=== PATIENT | male | born 1995 ===

== ENCOUNTER 2025-02-03 08:02 | Outpatient (AMB) | payer BC, SELFPAY ==
--- NOTE | 2025-02-03 08:05 | MHC.PC.OV ---
Vital Signs 02/03/25 08:07 Height 5 ft 6.54 in Weight 194 lb 2 oz BMI 30.8 BP 120/60 Blood Pressure Location Lt brachial Position Sitting Pulse 75 Pulse Source Pulse Oximeter Temp 97.3 F Temp Source Temporal Artery Scan Pulse Oximetry (%) 98 Oxygen Delivery Method Room Air Intake Visit Reasons: establish care Intake Note: Patient is a new patient here to establish care for Wellness visit. Transferring care from [facility]. Medical records have been requested and have not received. Certified Nurses' Aide Required: No Mule Tender: Not Required per policy Accompanied by: Self / Same As Patient Allergies No Known Allergies Allergy (Verified 02/03/25 08:17) Medication List - Last Reconciled 02/03/25 by Carri Bowen PA-C No Known Home Meds Tobacco use date assessed: 02/03/25 Dental Screening Dental Screen Date: 02/03/25 Did you have a dental visit in the last 12 months?: Yes Did you have a dental problem in the last 6 months where you did not have access to dental care?: No Was dental information given to patient?: Patient has dentist HPI establish care HPI Details 29-year-old male coming to the office with the 1st time. Presenting for a wellness visit and evaluation of skin and lymphatic concerns. 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 It is characterized by periods of remission and recurrence, with no associated pain or itchiness. The patient has attempted various treatments, including antifungal shampoos, but adherence has been inconsistent. He does also mentioned having left breast mass that he occasionally feels that has not nontender. [facility] Surgical History History of wisdom tooth extraction History of tonsillectomy Family History Paternal Grandfather Skin cancer Adrenal cancer Paternal Grandmother Throat cancer Social History Housing: Apartment Alcohol intake: never Patient Tobacco Use Status: Never used Tobacco e-Cigarette/Vaping Use: Never Used Second Hand Smoke Exposure: No service: No Current occupational status: employed Current occupation: Banker Cognitive needs: No Hearing needs: No Vision needs: Yes (Glasses) Questionnaire PHQ-9 Over the last 2 weeks, how often have you been bothered by any of the following problems? 1. Little interest or pleasure in doing things: not at all 2. Feeling down, depressed, or hopeless: not at all 3. Trouble falling or staying asleep, or sleeping too much: not at all 4. Feeling tired or having little energy: not at all 5. Poor appetite or overeating: not at all 6. Feeling bad about yourself - or that you are a failure or have let yourself or your family down: not at all 7. Trouble concentrating on things, such as reading the newspaper or watching television: not at all 8. Moving or speaking so slowly that other people could have noticed. Or the opposite - being so fidgety or restless that you have been moving around a lot more than usual: not at all 9. Thoughts that you would be better off or of hurting yourself in some way: not at all Total score: 0 Depression Screening Interpretation: Negative Depression Screening Done: Yes 42696 - PHQ-9 Billing: Yes Source: Developed by Drs. Thong Rubin, Cecelia Oneil, Hank Evans and colleagues, with an educational maren from [email or web address]. Thrive Questionnaire Date Thrive assessed: 01/31/25 I am a: Patient What is your living situation today?: I choose not to answer this question Within the past 12 months, did the food you bought not last and you didn't have the money to get more?: I choose not to answer this question Within the past 12 months, did you worry whether your food would run out before you got money to buy more?: I choose not to answer this question Do you have trouble paying for medicines?: I choose not to answer this question Do you have trouble getting transportation to medical appointments?: I choose not to answer this question Do you have trouble paying your heating and electricity bill?: I choose not to answer this question Do you have trouble taking care of your child, family member or friend?: I choose not to answer this question Do you have trouble with day-to-day activities such as bathing, preparing meals, shopping, managing finances, etc.?: I choose not to answer this question Are you currently unemployed and looking for a job?: I choose not to answer this question Are you interested in more education?: I choose not to answer this question Please select the resources that you would like help with: None Currently or been in a relationship where the following occur: I choose not to answer THRIVE Score: 0 AUDIT C Alcohol Use Questionnaire (AUDIT-C) 1. How often do you have a drink containing alcohol?: Never 2. How many drinks containing alcohol do you have on a typical day when you are drinking?: 1 or 2 3. How often do you have six or more drinks on one occasion?: Never Total Score: 0 STUART-7 AMB Questionnaire STUART-7 Date STUART - 7 assessed: 02/03/25 Feeling nervous, anxious, or on edge: 0 = Not at all Not being able to stop or control worryin = Not at all Worrying too much about different things: 0 = Not at all Trouble relaxin = Not at all Being so restless that it is hard to sit still: 0 = Not at all Becoming easily annoyed or irritable: 0 = Not at all Feeling afraid as if something awful might happen: 0 = Not at all Total STUART-7 score (0-4 normal; 5-9 mild; 10-14 moderate; 15-21 severe): 0 Source: Developed by Drs. Thong Rubin, Cecelia Oneil, Hank Evans and colleagues, with an educational maren from [email or web address]. STUART-7 Assessment Billing STUART-7 Assessment Tool: STUART-7 Assessment 11885 Review of Systems Const Denies body aches, Denies chills, Denies fever(s), Denies headache(s) and Denies poor appetite Eyes Reports no additional complaints ENT Reports dysphagia, Denies dizziness, Denies headache(s) and Denies odynophagia Card Denies chest pain, Denies syncope, Denies edema, Denies irregular heart rhythm, Denies lightheadedness and Denies dyspnea Resp Denies cough and Denies dyspnea GI Denies abdominal pain, Denies constipation, Reports dysphagia, Denies diarrhea, Denies nausea, Denies odynophagia and Denies vomiting Reports no additional complaints Musc Reports no additional complaints and Denies abnormal gait Skin/Breast Reports system reviewed and no additional complaints, except as documented Neuro Denies abnormal gait, Denies dizziness, Denies syncope and Denies headache(s) Psych Reports no additional complaints Physical exam (Primary Care) Vital Signs: Last Vital Signs Temp 97.3 F 02/03/25 08:07 Pulse 75 02/03/25 08:07 BP 120/60 02/03/25 08:07 Pulse Ox 98 02/03/25 08:07 Oxygen Delivery Method Room Air 02/03/25 08:07 BMI result Body Mass Index 30.8 Tobacco/Smoking Status: Tobacco use Status Tobacco use date assessed 02/03/25 02/03/25 08:16 Patient Tobacco Use Status Never used Tobacco 02/03/25 08:16 e-Cigarette/Vaping Use Never Used 02/03/25 08:16 PHQ-9: PHQ-9 Score PHQ-9: Total score 0 02/03/25 12:54 Depression Screening Interpretation: Negative Thrive Assessment: Date of Thrive Assessment Date Thrive assessed 01/31/25 02/03/25 08:16 Currently or been in a relationship where the following occur: I choose not to answer Const General: cooperative, healthy appearing, comfortable and no acute distress Orientation/consciousness: patient oriented x3 HENMT Head: Yes normocephalic Ears: hearing grossly normal bilaterally General nose exam: Normal external nose present Eyes General: appearance normal, both eyes and all related structures Conjunctivae: conjunctivae normal Neck Other: No lymphadenopathy and no palpable lymph nodes Neck: Yes full ROM and Yes no lymphadenopathy Chest Chest/axillae images:  1. Soft, nontender, freely mobile mass Resp Effort & Inspection: normal respiratory effort Auscultation: clear to auscultation bilaterally, no crackles, no rales, no rhonchi and no wheezes Cardio Rate: regular rate Rhythm: regular rhythm Skin Other: Multiple round yellow lesions on the entirety of the back and right shoulder consistent with fungal infection Neuro General: patient oriented x3 Gait exam (Neuro): Normal gait present Extrem General: Yes normal to inspection, Yes full ROM and No edema Psych Affect: normal affect Attitude: cooperative Insight: Good insight present (Psych) Judgement: Good judgement present (Psych) Coding Level of Care Code New Pt Level 4 (52741) New Pt Prev Care 18-39yr(04778 Diagnoses Dysphagia R13.10 Atypical nevi D22.9 Obesity (BMI 30.0-34.9) E66.811 Mass of lower inner quadrant of left breast N63.24 Laterality: left Breast mass location: lower inner quadrant Annual physical exam Z00.00 Rash R21 Additional Codes STUART-7 Assessment Billing - STUART-7 Assessment Tool: STUART-7 Assessment 20629 ([id number]) PHQ-9 - 46903 - PHQ-9 Billing: Yes ([id number]) Assessment & Plan Assessment & Plan (1) Dysphagia: Code(s): R13.10 - Dysphagia, unspecified Category: Medical Plan: Patient reporting occasional difficulty swallowing and choking on food occasionally. Plan to obtain barium swallow for further evaluation. In the meantime he sure to take small bites of food and chew thoroughly. (2) Atypical nevi: Code(s): D22.9 - Melanocytic nevi, unspecified Category: Medical Plan: Referral was placed to Dermatology today. At this time none of the lesions that were of concern appear to be suspicious however Dermatology we will give better insight. (3) Obesity (BMI 30.0-34.9): Code(s): E66.811 - Obesity, class 1 Category: Medical Plan: Healthy diet and regular exercise is encouraged. (4) Breast mass: Code(s): N63.0 - Unspecified lump in unspecified breast Category: Medical Qualifiers: Laterality: left Breast mass location: lower inner quadrant Qualified Code(s): N63.24 - Unspecified lump in the left breast, lower inner quadrant Plan: Patient having soft nontender breast mass in the left side given his concerns and current gynecomastia plan to obtain ultrasound and mammogram for further evaluation. (5) Annual physical exam: Code(s): Z00.00 - Encounter for general adult medical examination without abnormal findings Category: Medical Plan: Patient is up-to-date on all recommended routine screenings and vaccinations for his age. Healthy diet and regular exercise is encouraged. Ordered for updated blood work and plan to follow up in 3 months (6) Rash: Code(s): R21 - Rash and other nonspecific skin eruption Category: Medical Plan: Patient having a rash on the shoulder and back consistent with a fungal infection, likely tinea. Advised to use selenium sulfide on the affected area and follow up with Dermatology. Plan The patient will undergo imaging studies, including an ultrasound and mammogram, to evaluate the palpable lymph node in the left axillary region. These tests are intended to rule out any significant pathology and provide reassurance to the patient. For the management of the fungal rash, an antifungal body wash has been recommended. The patient is advised to follow up with dermatology for further evaluation and management if the condition persists or worsens. Preventative care measures include scheduling breast and skin cancer screenings. The patient is encouraged to maintain regular exercise and dietary modifications to manage weight effectively. This note was constructed using voice recognition software. While every effort has been made to ensure accuracy and novelty dipper, still areas may have been included sometimes these areas may affect the content or meeting of the given symptoms. Total time spent caring for the patient today was 30 minutes. This includes time spent before the visit reviewing the chart, time spent during the visit, and time spent after the visit and documentation. Patient was informed and verbally consented to the use of an ambient scribe for clinic note documentation during this visit. Orders: Orders Comprehensive Met. Panel Today Z13.0 - Encounter for screening for diseases of the blood and blood-forming organs and certain disorders involving the immune mechanism, Z13.220 - Encounter for screening for lipoid disorders, Z13.29 - Encounter for screening for other suspected endocrine disorder Lipid Panel Today Z13.220 - Encounter for screening for lipoid disorders Free T4 (Free Thyroxine) Today Z13.29 - Encounter for screening for other suspected endocrine disorder Vitamin B12 and Folate Today Z13.21 - Encounter for screening for nutritional disorder FL barium swallow Today R13.10 - Dysphagia, unspecified Complete Blood Count Auto Diff Today Z13.0 - Encounter for screening for diseases of the blood and blood-forming organs and certain disorders involving the immune mechanism TSH reflex Free T4 Today Z13.29 - Encounter for screening for other suspected endocrine disorder Vitamin D 25-OH Total Today Z13.21 - Encounter for screening for nutritional disorder US breast LT limited Today N63.0 - Unspecified lump in unspecified breast MM tomosynthesis diagnostic LT Today N63.0 - Unspecified lump in unspecified breast Referrals Dermatology Referral D22.9 - Melanocytic nevi, unspecified Medications: New selenium sulfide 1% (Dandruff Shampoo (selenium sulfide)) massage into affected area; leave on for 10 mins ; rinse off thoroughly 1 appl topical BEDTIME 207 mL 0RF 7 days
[2025-02-03 08:07] VITALS: BP 120/60; PULSE 75; TEMP 36.3; O2SAT 98; BMI 30.8
== END 2025-02-03 08:56 | disposition home or self-care (01) ==
DX: Z00.00 Encounter for general adult medical examination without abnormal findings (principal); N63.24 Unspecified lump in the left breast, lower inner quadrant; D22.9 Melanocytic nevi, unspecified; E66.811 Obesity, class 1; Z68.30 Body mass index [BMI] 30.0-30.9, adult; R13.10 Dysphagia, unspecified; R21 Rash and other nonspecific skin eruption

== ENCOUNTER → 2025-02-03 08:02 | Outpatient (BNVA) | payer BC, SELFPAY | DX: Z00.00 Encounter for general adult medical examination without abnormal findings (principal); R13.10 Dysphagia, unspecified; D22.9 Melanocytic nevi, unspecified; E66.811 Obesity, class 1; N63.24 Unspecified lump in the left breast, lower inner quadrant; R21 Rash and other nonspecific skin eruption; Z13.31 Encounter for screening for depression; Z13.39 Encounter for screening examination for other mental health and behavioral disorders | CPT/HCPCS: 96127 ==

== ENCOUNTER 2025-02-27 07:09 | Outpatient (REF) | payer BC, SELFPAY ==
--- NOTE | ~2025-02-27 | MM_ITS ---
EXAMINATION: MM DIAGNOSTIC DIGITAL BREAST TOMOSYNTHESIS, BILATERAL Limited left breast ultrasound. CLINICAL INFORMATION: Left breast palpable lump lower inner breast. COMPARISON: No prior imaging available for comparison. TECHNIQUE: Digital breast mammography with tomosynthesis is performed in both the craniocaudal and mediolateral oblique views along with computer-aided detection (CAD). FINDINGS: Left: BB marker in the lower inner quadrant anterior depth with an underlying faint oval mass. No suspicious calcifications or other abnormal findings. Targeted color Doppler ultrasound at 6:00 2 cm from the nipple demonstrates a subdermal hypoechoic oval circumscribed solid mass measuring 17 x 11 x 6 mm this mass is isoechoic and could represent a probable lipoma versus other probably benign solid mass. Right: There are no significant masses, abnormal calcifications, or other abnormalities. Results are provided to the patient at time of visit by the technologist. MM/MM tomosynthesis diagnostic BI IMPRESSION: Right: Negative. Left: Probable lipoma at 6:00 2 cm from the nipple on ultrasound correlating with the patient's palpable lump. Recommend 6 month follow-up ultrasound for further evaluation of stability. This mass is amenable to ultrasound-guided core needle biopsy if the patient prefers and can be scheduled. ASSESSMENT: BI-RADS BI-RADS 3 - Probably benign finding(s) - 6 month follow-up suggested RECOMMENDATION: 6 Month F/U Electronically signed by: Liza Benavides DO 02/27/2025 11:48 AM EDT
[2025-02-27 07:27] LABS: MANUAL DIFF FLAG NO
[2025-02-27 07:36] LABS: Hematocrit 44.2 % (42.0-52.0); Hemoglobin 15.3 g/dl (14.0-18.0); Imm Gran Abs Auto 0.01 X10*3/uL (0.00-0.03); Imm Gran Pct Auto 0.2 % (0.0-0.4); Lymphocytes Absolute Auto 2.2 X10*3/uL (1.2-4.9); Mean Corpuscular HGB Conc 34.6 g/dl (31.0-36.0); Mean Corpuscular Hemoglobin 31.4 pg (27.0-33.0); Mean Corpuscular Volume 90.8 fL (80.0-98.0); NRBC Abs Auto 0.000 X10*3/uL (0.0-0.012); NRBC Pct Auto 0.0 /100WBC (0.0-0.2); Platelet Count 238 X10*3/uL (160-400); Red Blood Count 4.87 X10*6/uL (4.60-5.80); White Blood Count 6.5 X10*3/uL (4.8-10.8)
[2025-02-27 08:19] LABS: Alanine Aminotransferase 25 U/L (0-40); Albumin Level 4.9 g/dL (3.5-5.0); Alkaline Phosphatase 57 U/L (39-117); Anion Gap 10 (12-20); Aspartate Amino Transferase 35 U/L (5-37); Blood Urea Nitrogen 14 mg/dL (9-16); Calcium 9.3 mg/dL (8.4-10.2); Carbon Dioxide 25 mmol/L (22-29); Chloride 109 mmol/L (96-108); Cholesterol 180 mg/dL (<200); Estimated Glomerular Filt Rate > 60; HDL Cholesterol 36 mg/dL (>40); Potassium 4.4 mmol/L (3.3-5.1); Sodium 140 mmol/L (135-145); Total Protein 7.4 g/dL (6.5-8.0); Triglycerides 100 mg/dL (<150)
[2025-02-27 08:40] LABS: Free T4 (Free Thyroxine) 0.97 ng/dL (0.71-1.85)
[2025-02-27 08:41] LABS: Folate 12.0 ng/mL (> or = 4.0); Vitamin B12 240 pg/mL (200-900)
== END 2025-02-27 07:10 | disposition home or self-care (01) ==
LOC: HO.MAMMO 07:09
PROVIDERS: PCP Internal Medicine
DX: N63.24 Unspecified lump in the left breast, lower inner quadrant (principal); Z13.21 Encounter for screening for nutritional disorder; Z13.29 Encounter for screening for other suspected endocrine disorder; Z13.220 Encounter for screening for lipoid disorders; Z13.0 Encounter for screening for diseases of the blood and blood-forming organs and certain disorders involving the immune mechanism; Z13.6 Encounter for screening for cardiovascular disorders; Z12.31 Encounter for screening mammogram for malignant neoplasm of breast
CPT/HCPCS: 36415; 76642; 77062; 77066; 80053; 80061; 82306; 82607; 82746; 84439; 84443; 85025

== ENCOUNTER → 2025-02-27 11:00 | Outpatient (BNV) | payer BC, SELFPAY | PROVIDERS: PCP Internal Medicine; Visit Provider Internal Medicine | DX: N63.24 Unspecified lump in the left breast, lower inner quadrant (principal) | CPT/HCPCS: 76642; 77062; 77066 ==